=== PATIENT | female | born 2000 | race Caucasian/White ===

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

== ENCOUNTER 2023-05-06 22:20 | Emergency (ER) | payer OTHER ==
[~2023-05-06] VITALS: Ht 165.1 cm; Wt 63.5 kg
[2023-05-06 22:30] VITALS: BP 138/105; PULSE 77; RESP 16; TEMP 97.8; O2SAT 98
[2023-05-07] MEDS ORDERED: KETOROLAC 60 MG/2 ML VIAL IM ONE (00:30)
[2023-05-07] MEDS ORDERED: NAPR-54 PO (00:52)
[2023-05-07 00:55] VITALS: BP 138/105; PULSE 77; RESP 16; TEMP 97.8; O2SAT 98
== END 2023-05-07 01:26 | disposition home or self-care (01) ==
LOC: MED 22:20
DX: S93.401A Sprain of unspecified ligament of right ankle, initial encounter (principal); Z79.1 Long term (current) use of non-steroidal anti-inflammatories (NSAID); W18.39XA Other fall on same level, initial encounter; Y92.89 Other specified places as the place of occurrence of the external cause; Y93.89 Activity, other specified; Y99.8 Other external cause status
CPT/HCPCS: 73610; 96372; 99283; J1885